=== PATIENT | male | born 1965 | race Two or more races ===

== ENCOUNTER 2022-10-07 11:38 | Day surgery (SDC) | payer MEDICARE, MEDICAID ==
[~2022-10-07] VITALS: Ht 182.9 cm; Wt 85.4 kg
[2022-10-07] MEDS ORDERED: fentaNYL/PF 50MCG/1 ML 2ML syringe ONE (11:45)
[2022-10-07] MEDS ORDERED: MIDAZolam 1 MG/ML 5ML VIAL ONE (11:45)
[2022-10-07] MEDS ORDERED: LIDOcaine Viscous 15ml cup ONE (11:45)
[2022-10-07 11:50] VITALS: BP 143/117
[2022-10-07] MEDS ORDERED: LISI5TAB22 PO (11:50)
[2022-10-07] MEDS ORDERED: BISA-155 PO (11:53)
[2022-10-07] MEDS ORDERED: ATOR40TA71 PO (11:54)
[2022-10-07 12:50] VITALS: BP 119/96
[2022-10-07 13:00] VITALS: BP 108/39
[2022-10-07 13:10] VITALS: BP 126/92
[2022-10-07 13:20] VITALS: BP 158/75
== END 2022-10-07 13:35 | disposition home or self-care (01) ==
LOC: GI LAB 11:38
PROVIDERS: ATTEND Internal Medicine Gastroenterology
DX: Z12.11 Encounter for screening for malignant neoplasm of colon (principal); R13.10 Dysphagia, unspecified; K29.70 Gastritis, unspecified, without bleeding; K21.01 Gastro-esophageal reflux disease with esophagitis, with bleeding; K29.80 Duodenitis without bleeding; I10 Essential (primary) hypertension; Z87.891 Personal history of nicotine dependence; Z79.899 Other long term (current) drug therapy; Z86.73 Personal history of transient ischemic attack (TIA), and cerebral infarction without residual deficits
CPT/HCPCS: 43239; G0121; G0500; J2250; J3010; J7030; Z7512; 45330; 99152; 99153; A4620

== ENCOUNTER 2022-10-09 10:27 | Day surgery (SDC) | payer MEDICARE, MEDICAID ==
[~2022-10-09] VITALS: Ht 182.9 cm; Wt 85.4 kg
[~2022-10-09 10:27] MED LIST: ATOR40TA71 PO; BISA-155 PO; LISI5TAB22 PO
[2022-10-09 10:35] VITALS: BP 145/93
[2022-10-09] MEDS ORDERED: diphenhydrAMINE 50 mg/ml inj ONE (11:08)
[2022-10-09] MEDS ORDERED: MIDAZolam 1 MG/ML 5ML VIAL ONE (11:09)
[2022-10-09] MEDS ORDERED: fentaNYL/PF 50MCG/1 ML 2ML syringe ONE (11:09)
[2022-10-09 13:15] VITALS: BP 117/78
[2022-10-09 13:25] VITALS: BP 109/74
[2022-10-09 13:35] VITALS: BP 103/72
[2022-10-09 13:45] VITALS: BP 107/72
== END 2022-10-09 13:55 | disposition home or self-care (01) ==
LOC: GI LAB 10:27
PROVIDERS: ATTEND Internal Medicine Gastroenterology
DX: Z12.11 Encounter for screening for malignant neoplasm of colon (principal); D12.2 Benign neoplasm of ascending colon; I10 Essential (primary) hypertension; Z86.73 Personal history of transient ischemic attack (TIA), and cerebral infarction without residual deficits; Z79.899 Other long term (current) drug therapy
CPT/HCPCS: 45385; C1889; G0500; J2250; J3010; J7030; Z7512; 99152; 99153; A4620; J1200

== ENCOUNTER 2023-09-11 19:07 | Inpatient (IN) | payer MEDICARE, MEDICAID ==
[~2023-09-11] VITALS: Ht 182.9 cm; Wt 118.1 kg
[2023-09-11 21:11] LABS: BILIRUBIN,URINE NEGATIVE (Neg); CLARITY,URINE TURBID (Clear); COLOR,URINE YELLOW (Yellow); GLUCOSE, URINE NEGATIVE (Neg); KETONES,URINE NEGATIVE (Neg); LEUKOCYTE ESTERASE ,URINE LARGE (Neg); NITRITES, URINE NEGATIVE (Neg); OCCULT BLOOD,URINE LARGE (Neg); PROTEIN,URINE NEGATIVE (Neg)
[2023-09-11 21:19] LABS: UA COLLECTION TYPE FOLEY CATH
[2023-09-11 21:21] LABS: BACTERIA,URINE 4+ /HPF (Neg); WBC,URINE 50-100 /HPF (0-4)
[2023-09-11 21:22] LABS: RENAL CELLS, URINE FEW /HPF; TRANSITIONAL EPI CELLS,URINE FEW /HPF
[2023-09-11 21:23] LABS: SQUAMOUS EPITHELIAL CELL,UR NONE SEEN /LPF (FEW)
[2023-09-11 21:24] LABS: WBC CLUMPS,URINE FEW /HPF (NEGATIVE)
[2023-09-11] MEDS: morphine 2 MG/ML inj. syringe IV PRN (22:04)
[2023-09-11] MEDS ORDERED: ondansetron/PF 4mg/2ml inj IV PRN (23:25)
[2023-09-11] MEDS ORDERED: morphine 2 MG/ML inj. syringe IV PRN (23:25)
[2023-09-11] MEDS ORDERED: diphenhydrAMINE 50 mg/ml inj IV PRN (23:25)
[2023-09-11] MEDS ORDERED: HYDROcodone/acetaminophen 5mg/325mg tablet PO PRN (23:25)
[2023-09-11] MEDS ORDERED: bisacodyl 10mg suppository rectal RC PRN (23:25)
[2023-09-11] MEDS: normal saline 1000ml 1,000 ML IV SCH (23:25)
[2023-09-11] MEDS ORDERED: acetaminophen 325mg tablet PO PRN ×2 (23:25)
[2023-09-11] MEDS ORDERED: diphenhydrAMINE 25mg capsule PO PRN (23:25)
[2023-09-11] MEDS ORDERED: ondansetron 4mg rapidly disintigrating tab PO PRN (23:25)
[2023-09-11] MEDS ORDERED: potassium Cl 20 mEq SR tablet PO PRN (23:25)
[2023-09-11] MEDS ORDERED: mag hydrox/Alum hydrox/simeth 30ml oral suspension PO PRN (23:25)
[2023-09-11] MEDS ORDERED: magnesium hydroxide 30ml (MOM) UD suspension PO PRN (23:25)
[2023-09-12] VITALS (15 sets, daily range): BP systolic 113–146; BP diastolic 75–89; PULSE 57–114; RESP 12–20; TEMP 97.9–98.4; O2SAT 93–98
[2023-09-12 00:05] LABS: HEMOGLOBIN A1C 5.3 % (4.5-6.2)
[2023-09-12 00:07] LABS: APTT 30 SECONDS (22-32); PROTHROMBIN TIME 10.6 SECONDS (9.0-12.0)
[2023-09-12 00:17] LABS: MAGNESIUM 1.8 MG/DL (1.5-2.4); PHOSPHORUS 3.6 MG/DL (2.3-4.5)
[2023-09-12] MEDS ORDERED: ASPI-1397 PO (00:34)
[2023-09-12 04:10] LABS: ALANINE AMINOTRANSFERASE 24 U/L (12-78); ALBUMIN/GLOBULIN RATIO 0.9 (1.1-1.5); ALKALINE PHOSPHATASE 102 IU/L (46-116); ANION GAP 9 (8-16); ASPARTATE AMINO TRANSFERASE 17 U/L (10-37); BASOPHILS % (AUTO) 0.6 % (0-1); BLOOD UREA NITROGEN 9 MG/DL (7-18); BUN/CREATININE RATIO 14.3 (10.0-20.0); CALCIUM 7.5 MG/DL (8.5-10.1); CHLORIDE 106 MMOL/L (99-107); CREATININE 0.63 MG/DL (0.60-1.10); EOSINOPHILS # (AUTO) 0.3 X10'3 (0-0.9); EOSINOPHILS % (AUTO) 3.8 % (0-6); GLUCOSE 96 MG/DL (70-104); HEMATOCRIT 40.3 % (42.0-52.0); HEMOGLOBIN 13.4 g/dl (14.0-17.9); LYMPHOCYTES # (AUTO) 1.7 X10'3 (1.1-4.8); LYMPHOCYTES % (AUTO) 24.6 % (21-51); MEAN CORPUSCULAR HEMOGLOBIN 30.3 PG (27.0-31.0); MEAN CORPUSCULAR HGB CONC 33.3 g/dL (33.0-36.5); MEAN CORPUSCULAR VOLUME 91.2 FL (78-98); MEAN PLATELET VOLUME 8.7 FL (7.4-10.4); MONOCYTES # (AUTO) 0.7 X10'3 (0-0.9); MONOCYTES % (AUTO) 9.7 % (2-12); NEUTROPHILS # (AUTO) 4.2 X10'3 (1.8-7.7); NEUTROPHILS % (AUTO) 61.3 % (42-75); PLATELET COUNT 241 X10'3 (140-440); POTASSIUM 4.1 MMOL/L (3.5-5.1); RED BLOOD COUNT 4.41 X10'6 (4.70-6.10); RED CELL DISTRIBUTION WIDTH 14.5 % (11.5-14.5); SODIUM 139 MMOL/L (135-145); TOTAL CARBON DIOXIDE 24.3 MMOL/L (24-32); TOTAL PROTEIN 6.4 G/DL (6.4-8.2); WHITE BLOOD COUNT 6.8 X10'3 (4.5-11.0); eCRCL 139 ML/MIN; eGFR > 90 ML/MIN
[2023-09-12 04:14] LABS: CHOL/HDL RATIO 2.2 (0.00-4.99); CHOLESTEROL 97 MG/DL (0-200); HDL CHOLESTEROL 44 MG/DL (35-60); LDL CHOLESTEROL 40 MG/DL (50-100); TRIGLYCERIDES 89 MG/DL (20-135)
[2023-09-12] MEDS: docusate sod 100mg capsule PO SCH (07:10)
[2023-09-12] MEDS: CefTRIAXone/D5W-Rocephin 1gm 50 ML IV SCH (07:22)
[2023-09-12] MEDS: pantoprazole 40MG/NS 100ML BAG 100 ML IV SCH (07:22)
[2023-09-12] MEDS ORDERED: ondansetron/PF 4mg/2ml inj IV PRN (08:45)
[2023-09-12] MEDS ORDERED: labetalol 20mg/4ml (5mg/ml) syringe IV PRN (08:45)
[2023-09-12] MEDS ORDERED: morphine 4 MG/ML inj SYRINge IV PRN (08:45)
[2023-09-12] MEDS ORDERED: morphine 2 MG/ML inj. syringe IV PRN (08:45)
[2023-09-12] MEDS: ringers solution, lacted 1,000 ML IV SCH (08:45)
[2023-09-12] MEDS ORDERED: fentaNYL/PF 50MCG/1 ML 2ML syringe IV PRN ×2 (08:45)
[2023-09-12] MEDS ORDERED: hydrALAZINE 20mg/ml inj. IV PRN (08:45)
[2023-09-12] MEDS ORDERED: propofol inj 20 ML IV ONE (08:51)
[2023-09-12] MEDS ORDERED: PHENYLephrine 10mg/ml 5ml injection IV ONE (08:51)
[2023-09-12] MEDS ORDERED: midazolam 1 mg/ML 2ml injection ONE (08:51)
[2023-09-12] MEDS ORDERED: sevoflurane 250ml liquid IH ONE (08:51)
[2023-09-12] MEDS ORDERED: LIDOcaine 2% (20mg/ml) 5ml vial ONE (08:51)
[2023-09-12] MEDS ORDERED: ondansetron/PF 4mg/2ml inj ONE (08:51)
[2023-09-12] MEDS ORDERED: fentaNYL/PF 50MCG/1 ML 2ML syringe ONE (08:51)
[2023-09-12] MEDS ORDERED: desflurane 240ml liquid inh. IH ONE (08:51)
[2023-09-12] MEDS ORDERED: dexamethasone sod phosphate 4mg/ml inj. ONE (08:51)
[2023-09-12] MEDS ORDERED: BUPIVAcaine 0.5% inj/PF 30 ML ONE (09:37)
[2023-09-12] MEDS: BUPIVAcaine 0.5% inj/PF 30 ml vial IJ ONE (09:39)
[2023-09-12] MEDS: ceFAZolin/D5W- 1GM premix 50 ML IV SCH (16:47)
[2023-09-12] MEDS: HYDROcodone/acetaminophen 10/325mg tab PO PRN (16:51)
[2023-09-12] MEDS: lisinopril 5mg tablet PO SCH (20:49)
[2023-09-13 02:00] VITALS: BP 112/77; PULSE 86; RESP 20; TEMP 97.6; O2SAT 96
[2023-09-13 06:00] VITALS: BP 114/78; PULSE 77; RESP 16; TEMP 98.1; O2SAT 96
[2023-09-13 06:48] LABS: BASOPHILS % (AUTO) 0.3 % (0-1); EOSINOPHILS % (AUTO) 0 % (0-6); HEMATOCRIT 36.5 % (42.0-52.0); HEMOGLOBIN 12.4 g/dl (14.0-17.9); LYMPHOCYTES # (AUTO) 1.3 X10'3 (1.1-4.8); LYMPHOCYTES % (AUTO) 12.6 % (21-51); MEAN CORPUSCULAR HEMOGLOBIN 30.8 PG (27.0-31.0); MEAN CORPUSCULAR HGB CONC 34.1 g/dL (33.0-36.5); MEAN CORPUSCULAR VOLUME 90.4 FL (78-98); MEAN PLATELET VOLUME 8.5 FL (7.4-10.4); MONOCYTES % (AUTO) 9.5 % (2-12); NEUTROPHILS # (AUTO) 8.2 X10'3 (1.8-7.7); NEUTROPHILS % (AUTO) 77.6 % (42-75); PLATELET COUNT 251 X10'3 (140-440); RED BLOOD COUNT 4.03 X10'6 (4.70-6.10); WHITE BLOOD COUNT 10.5 X10'3 (4.5-11.0)
[2023-09-13 07:13] LABS: ALANINE AMINOTRANSFERASE 21 U/L (12-78); ALBUMIN 2.7 G/DL (3.4-5.0); ALBUMIN/GLOBULIN RATIO 0.7 (1.1-1.5); ALKALINE PHOSPHATASE 99 IU/L (46-116); ANION GAP 7 (8-16); ASPARTATE AMINO TRANSFERASE 16 U/L (10-37); BILIRUBIN,TOTAL 0.5 MG/DL (0.1-1.0); BLOOD UREA NITROGEN 8 MG/DL (7-18); BUN/CREATININE RATIO 10.5 (10.0-20.0); CALCIUM 8.2 MG/DL (8.5-10.1); CHLORIDE 108 MMOL/L (99-107); CREATININE 0.76 MG/DL (0.60-1.10); GLUCOSE 134 MG/DL (70-104); POTASSIUM 4.2 MMOL/L (3.5-5.1); SODIUM 140 MMOL/L (135-145); TOTAL CARBON DIOXIDE 24.9 MMOL/L (24-32); TOTAL PROTEIN 6.4 G/DL (6.4-8.2); eCRCL 115 ML/MIN; eGFR > 90 ML/MIN
[2023-09-13 10:00] VITALS: BP 129/87; PULSE 83; RESP 15; TEMP 97.9; O2SAT 97
[2023-09-13] MEDS: aspirin 81mg, enteric-coated 1 TAB TABLET.DR PO SCH (10:00)
[2023-09-13] MEDS: atorvastatin 20mg tablet PO SCH (10:01)
[2023-09-13 18:30] VITALS: BP 136/84; PULSE 73; RESP 15; TEMP 98.3; O2SAT 98
[2023-09-13] MEDS: metoclopramide 5 mg/ml inj IV PRN (18:52)
[2023-09-13 22:00] VITALS: BP 97/56; PULSE 63; RESP 15; TEMP 98.6; O2SAT 94
[2023-09-14 06:00] VITALS: BP 111/71; PULSE 63; RESP 13; TEMP 98.8; O2SAT 95
[2023-09-14 07:22] LABS: BASOPHILS # (AUTO) 0.1 X10'3 (0-0.2); BASOPHILS % (AUTO) 0.8 % (0-1); EOSINOPHILS # (AUTO) 0.2 X10'3 (0-0.9); EOSINOPHILS % (AUTO) 2.5 % (0-6); HEMOGLOBIN 12.1 g/dl (14.0-17.9); LYMPHOCYTES # (AUTO) 2.5 X10'3 (1.1-4.8); LYMPHOCYTES % (AUTO) 28.9 % (21-51); MEAN CORPUSCULAR HEMOGLOBIN 30.9 PG (27.0-31.0); MEAN CORPUSCULAR HGB CONC 33.7 g/dL (33.0-36.5); MEAN CORPUSCULAR VOLUME 91.7 FL (78-98); MEAN PLATELET VOLUME 9.2 FL (7.4-10.4); MONOCYTES % (AUTO) 11.1 % (2-12); NEUTROPHILS # (AUTO) 4.9 X10'3 (1.8-7.7); NEUTROPHILS % (AUTO) 56.7 % (42-75); PLATELET COUNT 218 X10'3 (140-440); RED BLOOD COUNT 3.92 X10'6 (4.70-6.10); RED CELL DISTRIBUTION WIDTH 14.5 % (11.5-14.5); WHITE BLOOD COUNT 8.6 X10'3 (4.5-11.0)
[2023-09-14 07:35] LABS: ALANINE AMINOTRANSFERASE 20 U/L (12-78); ALBUMIN 2.6 G/DL (3.4-5.0); ALBUMIN/GLOBULIN RATIO 0.7 (1.1-1.5); ALKALINE PHOSPHATASE 101 IU/L (46-116); ANION GAP 9 (8-16); ASPARTATE AMINO TRANSFERASE 15 U/L (10-37); BILIRUBIN,TOTAL 0.4 MG/DL (0.1-1.0); BLOOD UREA NITROGEN 12 MG/DL (7-18); BUN/CREATININE RATIO 18.2 (10.0-20.0); CALCIUM 7.8 MG/DL (8.5-10.1); CHLORIDE 107 MMOL/L (99-107); CREATININE 0.66 MG/DL (0.60-1.10); GLUCOSE 100 MG/DL (70-104); POTASSIUM 3.6 MMOL/L (3.5-5.1); SODIUM 140 MMOL/L (135-145); TOTAL CARBON DIOXIDE 23.7 MMOL/L (24-32); TOTAL PROTEIN 6.1 G/DL (6.4-8.2); eCRCL 132 ML/MIN; eGFR > 90 ML/MIN
[2023-09-14 10:00] VITALS: BP 124/78; PULSE 72; RESP 18; TEMP 97.9; O2SAT 96
[2023-09-14] MEDS: morphine 2 MG/ML inj. syringe IV PRN (13:02)
[2023-09-14 18:30] VITALS: BP 156/91; PULSE 70; RESP 16; TEMP 98.4; O2SAT 96
[2023-09-14 22:00] VITALS: BP 117/43; PULSE 74; RESP 14; TEMP 99; O2SAT 95
[2023-09-15 06:00] VITALS: BP 123/91; PULSE 71; RESP 16; TEMP 98.6; O2SAT 96
[2023-09-15] MEDS ORDERED: CefTRIAXone/D5W-Rocephin 1gm 50 ML IV SCH (07:20)
[2023-09-15] MEDS: CefTRIAXone/D5W-Rocephin 1gm 50 ML IV SCH (08:24)
[2023-09-15] MEDS ORDERED: ASPI-1397 PO (08:27)
[2023-09-15] MEDS ORDERED: LISI5TAB22 PO (08:27)
[2023-09-15] MEDS ORDERED: ATOR40TA71 PO (08:27)
[2023-09-15] MEDS ORDERED: CIPR-259 PO (08:27)
[2023-09-15] MEDS ORDERED: PANT40TA54 PO (08:27)
[2023-09-15] MEDS ORDERED: HYDR-3965 PO (08:33)
[2023-09-15 08:42] LABS: BASOPHILS # (AUTO) 0.1 X10'3 (0-0.2); BASOPHILS % (AUTO) 0.6 % (0-1); EOSINOPHILS # (AUTO) 0.3 X10'3 (0-0.9); EOSINOPHILS % (AUTO) 3.2 % (0-6); HEMATOCRIT 37.8 % (42.0-52.0); HEMOGLOBIN 12.9 g/dl (14.0-17.9); LYMPHOCYTES # (AUTO) 2.5 X10'3 (1.1-4.8); LYMPHOCYTES % (AUTO) 28.6 % (21-51); MEAN CORPUSCULAR HEMOGLOBIN 30.7 PG (27.0-31.0); MEAN CORPUSCULAR VOLUME 90.4 FL (78-98); MEAN PLATELET VOLUME 8.4 FL (7.4-10.4); MONOCYTES # (AUTO) 0.9 X10'3 (0-0.9); MONOCYTES % (AUTO) 9.8 % (2-12); NEUTROPHILS # (AUTO) 5.1 X10'3 (1.8-7.7); NEUTROPHILS % (AUTO) 57.8 % (42-75); PLATELET COUNT 256 X10'3 (140-440); RED BLOOD COUNT 4.18 X10'6 (4.70-6.10); RED CELL DISTRIBUTION WIDTH 14.2 % (11.5-14.5); WHITE BLOOD COUNT 8.7 X10'3 (4.5-11.0)
[2023-09-15 10:00] VITALS: BP 96/77; PULSE 83; RESP 18; TEMP 98.9; O2SAT 93
[2023-09-15 10:56] LABS: ALANINE AMINOTRANSFERASE 19 U/L (12-78); ALBUMIN 2.6 G/DL (3.4-5.0); ALBUMIN/GLOBULIN RATIO 0.7 (1.1-1.5); ALKALINE PHOSPHATASE 86 IU/L (46-116); ANION GAP 7 (8-16); ASPARTATE AMINO TRANSFERASE 18 U/L (10-37); BILIRUBIN,TOTAL 0.6 MG/DL (0.1-1.0); BLOOD UREA NITROGEN 9 MG/DL (7-18); BUN/CREATININE RATIO 15.3 (10.0-20.0); CALCIUM 8.4 MG/DL (8.5-10.1); CHLORIDE 106 MMOL/L (99-107); CREATININE 0.59 MG/DL (0.60-1.10); GLUCOSE 79 MG/DL (70-104); POTASSIUM 3.9 MMOL/L (3.5-5.1); SODIUM 139 MMOL/L (135-145); TOTAL CARBON DIOXIDE 26.4 MMOL/L (24-32); TOTAL PROTEIN 6.3 G/DL (6.4-8.2); eCRCL 148 ML/MIN; eGFR > 90 ML/MIN
[2023-09-15 16:00] VITALS: RESP 14
== END 2023-09-15 17:45 | DRG 481 ==
LOC: ER 19:07 → ED HOLD 23:30 → ORTHO 4S 09-12 12:08
PROVIDERS: ADMIT Family Medicine; ATTEND Internal Medicine
PROC: 0QS606Z Reposition Right Upper Femur with Intramedullary Internal Fixation Device, Open Approach (ICD-10-PCS; principal; 2023-09-12 08:51)
DX: S72.144A Nondisplaced intertrochanteric fracture of right femur, initial encounter for closed fracture (principal); I69.351 Hemiplegia and hemiparesis following cerebral infarction affecting right dominant side; N39.0 Urinary tract infection, site not specified; I10 Essential (primary) hypertension; E78.5 Hyperlipidemia, unspecified; W18.39XA Other fall on same level, initial encounter; Y93.89 Activity, other specified; Y92.098 Other place in other non-institutional residence as the place of occurrence of the external cause; Y99.8 Other external cause status; Z99.3 Dependence on wheelchair; Z79.899 Other long term (current) drug therapy
CPT/HCPCS: 36415; 71045; 73502; 76000; 80053; 80061; 81001; 83036; 83605; 83735; 83880; 84100; 84484; 85025; 85610; 85730; 87040; 87077; 87088; 87186; 93005; 97110; 97161; 97530; 97535; 99285; A4314; A6212; A6258; A6449; C9113; G0378; J0690; J0696; J1100; J2250; J2270; J2370; J2405; J2704; J2765; J3010; J3490; J7030; S0020

== ENCOUNTER 2025-05-31 08:33 | Outpatient (CLI) | payer MEDICARE, MEDICAID ==
[~2025-05-31 08:33] MED LIST changes: +ASPI-1397 PO; -BISA-155 PO; +PANT40TA54 PO
--- NOTE | 2025-06-01 03:29 | CONSULTATION ---
DATE OF CONSULTATION: 05/31/2025 DICTATING PHYSICIAN: Serena Stover M.S., [facility]-[employer] COMPLIANCE OFFICER MODIFIED BARIUM SWALLOW STUDY REPORT REFERRING PHYSICIAN: Poncho Carrero MD HISTORY OF PRESENT ILLNESS: The patient is a 59-year-old male and consents to this evaluation. In history obtained from the patient and medical records, the patient reports symptoms of dysphagia including having a hard time with swallowing both foods and liquids. He reports some coughing on both foods and liquids and he had a large aspiration event on a food item. Since that event, he has been having his foods chopped. He has a history of cerebral infarction and he demonstrates right hemiparesis. CURRENT DIET: The patient is currently on a mechanical soft, thin liquid diet. PARAMETERS: The patient is seated in a lateral 90-degree view and administered the usual protocol of thin and nectar thick liquids, puree and solid consistencies, as well as self-regulated boluses of thin liquids from a cup. RESULTS: In the oral stage of the swallow, lingual strength was within functional limits and there was no oral residue noted after the tail of the bolus passed. The patient did present with a decreased rotary chew for mastication and so this appeared to impact his mastication abilities for the solid food items. In the pharyngeal stage of the swallow, tongue base retraction was mildly reduced. Swallow initiation was within functional limits. Anterior movement of the posterior pharyngeal wall was observed. Elevation of the hyothyroid complex was accomplished with full range of motion for epiglottic inversion and anterior and superior movement of the hyoid. There was noted to be a mild pharyngeal residue for the self-regulated boluses of thin liquid from a cup. The patient was noted to take a larger sip of liquid and then with that residue, he did not have any spontaneous secondary swallow to clear the bolus from the pharyngeal cavity. There is likely decreased sensation to cranial nerve following his cerebral infarction to initiate that swallow. The patient also demonstrated penetration of the 5 mL thin liquid and part of the solid consistency. It was less than 10% of the bolus and was immediately ejected back into the pharyngeal cavity. ANTERIOR, POSTERIOR VIEW: An AP view of the patient was unable to be obtained due to metal in the back of the patient's chair and the difficulty with transferring the patient into another chair at this time. 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 DIAGNOSES: R13.12, dysphagia oropharyngeal phase; I63.391, dysphagia following cerebral infarction. PATIENT EDUCATION: Immediately following modified barium swallow study, the patient and his caregiver from the facility that he resides was able to see the results. The normal anatomy of the swallowing mechanism was revealed. The patient was able to see how the current status of the swallowing mechanism decreases his ability to swallow normally. He was educated on a recommendation to continue his current diet of mechanical soft/thin liquids. He was also educated on taking smaller sips for his thin liquids and swallowing twice for liquids. RECOMMENDATIONS: 1. It is recommended that the patient continue on his current diet of mechanical soft/thin liquids. 2. It is also recommended that he follow the safe swallowing strategies of smaller sips and double swallows. LONG-TERM GOALS: The patient will maintain adequate hydration/nutrition with optimum safety and efficiency of swallow function on p.o. intake without overt signs and symptoms of aspiration for the highest possible diet level. FUNCTIONAL ORAL INTAKE: The FOIS was administered to establish and document a change in the functional eating activities of this patient over time. This is a 7-point scale, with 1 indicating no oral intake and totally tube dependent and 7 indicating total oral intake with no restrictions. This patient received a 5, which indicates total oral intake of multiple consistencies requiring special preparation. G-CODE: [id number]. Thank you very much for asking me to participate in the care of this kind patient. Should you have any questions regarding this evaluation or recommendations, please do not hesitate to contact me at [phone]. During this examination, 2:48 minutes of fluoroscopy time and 14.9 CAK mGy were utilized. Serena Stover M.S., [facility] OFF[employer]ER TID: [id number] RECEIPT: [id number] GÉNESIS/STUART GARCIA
== END 2025-05-31 23:59 | disposition home or self-care (01) ==
LOC: RAD 08:33
PROVIDERS: ATTEND Emergency Medicine
DX: R13.12 Dysphagia, oropharyngeal phase (principal); I69.391 Dysphagia following cerebral infarction
CPT/HCPCS: 74230